=== PATIENT | female | born 1945 | race African-American/Black ===

== ENCOUNTER 2016-11-25 20:08 | Emergency (ER) | payer MEDICARE, OTHER ==
[~2016-11-25] VITALS: Ht 180.3 cm; Wt 72.6 kg
[2016-11-25] MEDS ORDERED: LEVOTHYROXINE125 MCG ORAL (20:31)
[2016-11-25] MEDS ORDERED: VITAMIN D1000 UNI1 ORAL (20:31)
[2016-11-25] MEDS ORDERED: ASPIR 8181 MG ORAL (20:31)
[2016-11-25] MEDS ORDERED: AMLODIPINE BESYL5 MG ORAL (20:31)
[2016-11-25] MEDS ORDERED: POTASSIUM CHLOR8 ME2 PO (20:31)
[2016-11-25 21:44] VITALS: BP 138/57
[2016-11-25 21:49] LABS: BASOPHILS % (AUTO) 1.7 % (0.0-2.0); EOSINOPHILS % (AUTO) 1.3 % (0.0-3.0); LYMPHOCYTES % (AUTO) 26.7 % (20.0-45.0); MEAN CORPUSCULAR HEMOGLOBIN 28.4 PG (27.0-31.0); MEAN CORPUSCULAR HGB CONC 31.5 G/DL (32.0-36.0); MEAN CORPUSCULAR VOLUME 90 FL (80-99); MEAN PLATELET VOLUME 5.6 FL (6.5-10.1); MONOCYTES % (AUTO) 7.5 % (1.0-10.0); NEUTROPHILS % (AUTO) 62.8 % (45.0-75.0); PLATELET COUNT 235 K/UL (150-450); RED BLOOD COUNT 3.57 M/UL (4.20-5.40); WHITE BLOOD COUNT 8.8 K/UL (4.8-10.8)
[2016-11-25 22:05] LABS: TROPONIN I < 0.30 ng/mL (<=0.30)
[2016-11-25 22:18] LABS: ALANINE AMINOTRANSFERASE 9 U/L (3-33); ALBUMIN/GLOBULIN RATIO 1.3 (1.0-2.7); ANION GAP 20 (5-15); ASPARTATE AMINO TRANSFERASE 19 U/L (5-40); CALCIUM 9.4 mg/dL (8.6-10.2); CARBON DIOXIDE 25 mEQ/L (20-30); CHLORIDE 100 mEQ/L (98-107); CREATININE 0.8 mg/dL (0.5-0.9); HEMOLYSIS 39; POTASSIUM 3.8 mEQ/L (3.4-4.9); SODIUM 145 mEQ/L (135-145); TOTAL PROTEIN 7.2 g/dL (6.6-8.7)
[2016-11-25 22:28] LABS: CKMB 1.6 ng/mL (< 3.8)
[2016-11-25] MEDS ORDERED: HYDROCHLOROTHIA25 MG ORAL (22:49)
[2016-11-25 23:30] VITALS: BP_SYST 134; BP_SYST 138; BP_DIAS 57; BP_DIAS 61
--- NOTE | 2016-11-26 10:16 | Diagnostic Imaging Report ---
Clinical Indication: Abdominal pain Technique: No oral contrast utilized, per emergency room physician request IV administration nonionic contrast. Venous phase spiral acquisition obtained through the abdomen and pelvis. Multiplanar reconstructions were generated. Total dose length product 731 mGycm. CTDIvol(s) 15 mGy Comparison: None Findings: The appendix is normal. There is colonic diverticulosis. No evidence of diverticulitis. No small bowel distention. No free or loculated intraperitoneal air or fluid is evident. The liver, gallbladder, bile ducts, pancreas, spleen, adrenals, are unremarkable. Nonobstructing calculi are seen in the upper pole left kidney and questionably in the lower pole of the right kidney, measuring up to 3 mm diameter No retroperitoneal or mesenteric mass or adenopathy. No pelvic mass or adenopathy. Some calcifications are seen within the uterine myometrium. There are degenerative changes of the lumbosacral spine and of the pelvis. The included lung bases demonstrate some atelectasis on the left. The heart is enlarged Impression: No acute process Nonobstructive left upper pole intrarenal calyceal calculi. Equivocal tiny calculus in the lower pole the right kidney Diverticulosis. No evidence of diverticulitis Cardiomegaly Incidental findings of left basilar pulmonary atelectasis, degenerative dialysis, uterine myometrial calcifications This agrees with the preliminary interpretation provided overnight by [facility]. The CT scanner at [facility] is accredited by the [employer] and the scans are performed using protocols designed to limit radiation exposure to as low as reasonably achievable to attain images of sufficient resolution adequate for diagnostic evaluation.
--- NOTE | 2016-11-26 13:06 | Diagnostic Imaging Report ---
Indication: SOB Technique: One view of the chest Comparison: none Findings: The heart is mildly enlarged. Lungs and pleural space are clear. The aorta is calcified Impression: No acute process
--- NOTE | 2016-11-26 23:59 | Cardiology Report ---
APPROVED REPORT EKG Measurement Heart [id number] Sinus rhythm with premature atrial complexes Otherwise normal ECG
--- NOTE | 2016-11-27 20:44 | Emergency Room Report ---
History of Present Illness General Chief Complaint: Edema Source: Patient Present Illness HPI Patient is a 71-year-old female presented after increased lower extremity edema. Patient had recent increase in swelling to both legs. She denied any chest pain or shortness of breath. The patient had the noticed initial swelling to her right lower extremity. Her left lower extremity subsequently began swelling as well. She had no recent fever. She denied any change in her diet. She reported urinating normally. Patient had been taking diuretics. Allergies: Coded Allergies: No Known Allergies (Unverified , 11/25/16) Patient History Past Medical History: see triage record Now: No Reviewed Nursing Documentation: PMH: Agreed, PSxH: Agreed Nursing Documentation-PMH Past Medical History: No History, Except For Hx Hypertension: Yes Review of Systems All Other Systems: negative except mentioned in HPI Physical Exam Vital Signs Date Time Temp Pulse Resp B/P Pulse Ox O2 Delivery O2 Flow Rate FiO2 11/25/16 20:24 97.9 120 16 140/64 95 Room Air Sp02 EP Interpretation: reviewed, normal General Appearance: normal inspection, well appearing, no apparent distress, alert, GCS 15 Head: atraumatic ENT: normal ENT inspection, hearing grossly normal, normal voice Neck: normal inspection, full range of motion, supple, no bony tend Respiratory: normal inspection, lungs clear, normal breath sounds, no respiratory distress, no retraction, no wheezing Cardiovascular #1: regular rate, rhythm, edema Gastrointestinal: normal inspection, normal bowel sounds, non tender, soft, no guarding, no hernia Genitourinary: no CVA tenderness Musculoskeletal: normal inspection, back normal, normal range of motion Neurologic: normal inspection, alert, oriented x3, responsive, 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 Differential diagnosis included but was not limited to fracture, DVT, contusion, renal stone, vascular insufficiency, aortic aneurysm, cellulitis.Because of complexity of patient's case laboratory testing and imaging studies were ordered. Patient was noted to have evidence of pedal edema. This appears to not be cellulitic in nature. The patient was noted to have no prior history of cardiac disease or liver disease. Laboratory testing was ordered due to patient 's condition. BNP was unremarkable. CT of the abdomen pelvis was ordered to rule out mass. Patient was noted to have uterine fibroids. These do not appear decompressing her IVC. The patient is advised to follow up with primary care doctor in 1-2 days. Patient is advised to return if any worsening condition or if any changes in status that are concerning. Labs Test 11/25/16 21:00 11/25/16 21:25 Sodium Level 145 mEQ/L (135-145) Potassium Level 3.8 mEQ/L (3.4-4.9) Chloride Level 100 mEQ/L (98-107) Carbon Dioxide Level 25 mEQ/L (20-30) Anion Gap 20 (5-15) Blood Urea Nitrogen 14 mg/dL (7-23) Creatinine 0.8 mg/dL (0.5-0.9) Estimat Glomerular Filtration Rate mL/min (>60) Glucose Level 122 mg/dL (74-106) Calcium Level 9.4 mg/dL (8.6-10.2) Total Bilirubin 0.3 mg/dL (0.0-1.2) Aspartate Amino Transf (AST/SGOT) 19 U/L (5-40) Alanine Aminotransferase (ALT/SGPT) 9 U/L (3-33) Alkaline Phosphatase 118 U/L (35-104) Total Creatine Kinase 86 U/L (26-140) Creatine Kinase MB 1.6 ng/mL (< 3.8) Creatine Kinase MB Relative Index 1.8 Troponin I < 0.30 ng/mL (<=0.30) Total Protein 7.2 g/dL (6.6-8.7) Albumin 4.1 g/dL (3.5-5.2) Globulin 3.1 g/dL Albumin/Globulin Ratio 1.3 (1.0-2.7) Thyroid Stimulating Hormone (TSH) 1.570 uIU/mL (0.300-4.500) White Blood Count 8.8 K/UL (4.8-10.8) Red Blood Count 3.57 M/UL (4.20-5.40) Hemoglobin 10.1 G/DL (12.0-16.0) Hematocrit 32.1 % (37.0-47.0) Mean Corpuscular Volume 90 FL (80-99) Mean Corpuscular Hemoglobin 28.4 PG (27.0-31.0) Mean Corpuscular Hemoglobin Concent 31.5 G/DL (32.0-36.0) Red Cell Distribution Width 14.0 % (11.6-14.8) Platelet Count 235 K/UL (150-450) Mean Platelet Volume 5.6 FL (6.5-10.1) Neutrophils (%) (Auto) 62.8 % (45.0-75.0) Lymphocytes (%) (Auto) 26.7 % (20.0-45.0) Monocytes (%) (Auto) 7.5 % (1.0-10.0) Eosinophils (%) (Auto) 1.3 % (0.0-3.0) Basophils (%) (Auto) 1.7 % (0.0-2.0) Last Vital Signs Date Time Temp Pulse Resp B/P Pulse Ox O2 Delivery O2 Flow Rate FiO2 11/25/16 23:30 97.7 16 138/57 97 Room Air 11/25/16 23:30 84 Status: improved Disposition: HOME, SELF-CARE Condition: Stable Scripts Hydrochlorothiazide* (HYDROCHLOROTHIAZIDE*) 25 Mg Tablet 25 MG ORAL DAILY, #30 TAB Prov: Darron Beltre 11/25/16 Patient Instructions: Edema, [id number] Darron Beltre Nov 27, 2016 20:44
--- NOTE | 2016-11-28 10:26 | Diagnostic Imaging Report ---
APPROVED REPORT CPT Code: 77816 Present Symptoms Lower Extremity Pain: Bilateral BILATERAL: Imaging reveals a patent deep venous system bilaterally. There is no evidence of thrombus within the femoral, popliteal or tibial segments. The greater saphenous veins are also within normal limits. Doppler indicates normal spontaneous flow within these segments.
== END 2016-11-25 23:42 | disposition home or self-care (01) ==
LOC: EMR 20:46
DX: R60.0 Localized edema (principal); I10 Essential (primary) hypertension
CPT/HCPCS: 36415; 71010; 74177; 80053; 82550; 82553; 84443; 84484; 85025; 93005; 93970; 96374; 99284; J1940; Q9967

== ENCOUNTER 2017-02-01 12:43 | Emergency (ER) | payer MEDICARE ==
[~2017-02-01] VITALS: Ht 182.9 cm; Wt 76.2 kg
[~2017-02-01 12:43] MED LIST: AMLODIPINE BESYL5 MG ORAL; ASPIR 8181 MG ORAL; HYDROCHLOROTHIA25 MG ORAL; LEVOTHYROXINE125 MCG ORAL; POTASSIUM CHLOR8 ME2 PO; VITAMIN D1000 UNI1 ORAL
[2017-02-01 13:30] VITALS: BP 139/68
[2017-02-01] MEDS ORDERED: GABAPENTIN300 MG ORAL (13:59)
[2017-02-01 14:00] VITALS: BP 139/68
--- NOTE | 2017-02-03 11:40 | Emergency Room Report ---
History of Present Illness General Chief Complaint: General Complaint Source: Patient Present Illness [facility] The patient is a 71 yo F who has a Hx of HTN presenting for "weird feeling" in both legs for the past 2 months. She is unable to describe the sensation and denies pain, numbness, tingling, burning, cold, or heaviness. She denies any swelling to the legs or feet. She denies any injury. She has also noticed an increase of size to her abdomen and wants to make sure it is fat tissue. She admits to eating more sweets and walking less recently. She denies any other symptoms including N, V, F, chills, CP, SOB, rash, MARIE, dizziness, blurred vision, abd pain, diarrhea, constipation Allergies: Coded Allergies: No Known Allergies (Unverified , 11/25/16) Patient History Past Medical History: see triage record Pertinent Family History: none Reviewed Nursing Documentation: PMH: Agreed, PSxH: Agreed Nursing Documentation-PMH Past Medical History: No History, Except For Hx Hypertension: Yes Review of Systems All Other Systems: negative except mentioned in HPI Physical Exam Vital Signs Date Time Temp Pulse Resp B/P Pulse Ox O2 Delivery O2 Flow Rate FiO2 02/01/17 12:53 79 18 141/63 98 Room Air Sp02 EP Interpretation: reviewed, normal General Appearance: no apparent distress, alert, GCS 15, non-toxic Head: normocephalic, atraumatic Eyes: bilateral eye PERRL, bilateral eye normal inspection ENT: hearing grossly normal, normal pharynx, no angioedema, normal voice Neck: full range of motion, supple/symm/no masses Respiratory: normal inspection, chest non-tender, lungs clear, normal breath sounds, no accessory muscle use, speaking full sentences Cardiovascular #1: regular rate, rhythm, no edema Gastrointestinal: normal bowel sounds, non tender, soft, no mass, non-distended , no guarding, no rebound Genitourinary: normal inspection, no CVA tenderness Neurologic: alert, oriented x3, responsive, motor strength/tone normal, sensory intact, normal gait, speech normal Psychiatric: judgement/insight normal, memory normal, mood/affect normal, no suicidal/homicidal ideation Skin: normal color, no rash, warm/dry, well hydrated Lymphatic: no adenopathy Medical Decision Making PA Attestation Dr. Almeida is my supervising physician. Patient management was discussed with my supervising physician Diagnostic Impression: Primary Impression: Neuropathy ER Course The pt is a 71 yo F presenting for "weird feeling" of both legs and concern for abdominal enlargement DDx considered but not limited to: diabetes, neuropathy, strain, DVT, venous insufficiency, constipation, obesity, among others PE: vitals WNL. NAD Lungs CTA bilat. No MRG Abd is soft and non tender. There is adipose tissue where the patient is concerned for enlargement. No hernia. Normal BS. No discoloration Legs and feet: no edema. SILT. Non tender. Normal gait. no varicosity. Accucheck is 88. The pt will be FL'ed home and needs to FU with PMD. Prescription for gabapentin given. ER precautions given Chest X-Ray Diagnostic Results Chest X-Ray Ordered: No Last Vital Signs Date Time Temp Pulse Resp B/P Pulse Ox O2 Delivery O2 Flow Rate FiO2 02/01/17 14:00 87 17 139/68 99 Room Air Status: improved Disposition: HOME, SELF-CARE Condition: Improved Scripts Gabapentin* (GABAPENTIN*) 300 Mg Capsule 300 MG ORAL BID, #30 CAP 0 Refills Prov: ONEIDA BORJA 02/01/17 Referrals: NON PHYSICIAN (PCP) Patient Instructions: Peripheral Neuropathy Additional Instructions: I discussed my findings with the patient. All questions and concerns have been answered. Treatment and medication compliance have been addressed. I advised the patient that they need to follow up with PMD in 3-5 days. Return to ED if symptoms worsen, new symptoms arise, or if needed for any reason. Patient verbalized understanding of discharge instructions. ONEIDA BORJA Feb 03, 2017 11:40
== END 2017-02-01 14:00 | disposition home or self-care (01) ==
LOC: EMR 13:52
DX: G62.9 Polyneuropathy, unspecified (principal); I10 Essential (primary) hypertension
CPT/HCPCS: 82962; 99283

== ENCOUNTER 2017-03-04 07:52 | Emergency (ER) | payer MEDICAID, MEDICARE ==
[~2017-03-04] VITALS: Ht 182.9 cm; Wt 73.9 kg
[~2017-03-04 07:52] MED LIST changes: +GABAPENTIN300 MG ORAL
--- NOTE | 2017-03-04 08:05 | Emergency Room Report ---
History of Present Illness General Chief Complaint: To Be Triaged Source: Patient Present Illness HPI Patient presents with left shoulder pain. She states tingling on since [place] Day. Denies any trauma. Pain is in her shoulder and she's occasionally felt some swelling in her ring finger. She denies any numbness. Recently she was given a water pill because of retention of fluids with hypertension. The edema has improved in her legs. She also has some pain in her right elbow which is less than her left shoulder. She denies any chest pain , shortness of breath, fevers, chills, nausea, vomiting, diarrhea, dysuria. She denies taking any pain medication. Allergies: Coded Allergies: No Known Allergies (Unverified , 11/25/16) Patient History Past Medical History: see triage record Social History Narrative at home Reviewed Nursing Documentation: PMH: Agreed, PSxH: Agreed Nursing Documentation-PMH Hx Hypertension: Yes Review of Systems All Other Systems: negative except mentioned in HPI Physical Exam Vital Signs Date Time Temp Pulse Resp B/P Pulse Ox O2 Delivery O2 Flow Rate FiO2 03/04/17 08:02 98.2 106 14 125/57 96 Room Air Sp02 EP Interpretation: reviewed, normal General Appearance: well appearing, no apparent distress Head: normocephalic, atraumatic Eyes: bilateral eye PERRL, bilateral eye other - arcus ENT: hearing grossly normal, normal voice Neck: full range of motion, supple Respiratory: chest non-tender, lungs clear, no respiratory distress, speaking full sentences Cardiovascular #1: regular rate, rhythm Cardiovascular #2: 2+ radial (L) Musculoskeletal: no calf tenderness Neurologic: alert, normal gait Psychiatric: mood/affect normal Skin: no rash Medical Decision Making Diagnostic Impression: Primary Impression: Left shoulder pain Qualified Codes: M25.512 - Pain in left shoulder Additional Impression: Calcific bursitis of shoulder ER Course Patient with L shoulder pain with recent diuretics. DDx: bursitis, tendonitis, gout, cardiac cause amongst others. Evaluation with labs, EKG and xrays. Treatment with tylenol. Xrays with calcific bursitis and tendonitis. Labs exclude gout. EKG as below. Improved with treatment. Sling applied by tech. Position excellent and neurovasc normal as checked by me. Patient stable for outpatient observation and treatment. Laboratory Tests Test 03/04/17 08:20 White Blood Count 11.5 K/UL (4.8-10.8) H Red Blood Count 4.46 M/UL (4.20-5.40) Hemoglobin 12.8 G/DL (12.0-16.0) Hematocrit 40.4 % (37.0-47.0) Mean Corpuscular Volume 91 FL (80-99) Mean Corpuscular Hemoglobin 28.7 PG (27.0-31.0) Mean Corpuscular Hemoglobin Concent 31.6 G/DL (32.0-36.0) L Red Cell Distribution Width 12.4 % (11.6-14.8) Platelet Count 271 K/UL (150-450) Mean Platelet Volume 7.4 FL (6.5-10.1) Neutrophils (%) (Auto) 78.6 % (45.0-75.0) H Lymphocytes (%) (Auto) 12.7 % (20.0-45.0) L Monocytes (%) (Auto) 7.9 % (1.0-10.0) Eosinophils (%) (Auto) 0.1 % (0.0-3.0) Basophils (%) (Auto) 0.7 % (0.0-2.0) Prothrombin Time 9.4 SEC (9.30-11.50) Prothrombin Time INR 0.9 (0.9-1.1) PTT 30 SEC (23-33) Sodium Level 138 mEQ/L (135-145) Potassium Level 3.8 mEQ/L (3.4-4.9) Chloride Level 102 mEQ/L (98-107) Carbon Dioxide Level 23 mEQ/L (20-30) Anion Gap 13 (5-15) Blood Urea Nitrogen 10 mg/dL (7-23) Creatinine 0.8 mg/dL (0.5-0.9) Estimate Glomerular Filtration Rate mL/min (>60) Glucose Level 181 mg/dL (74-106) H Uric Acid 2.9 mg/dL (3.0-7.5) L Calcium Level 9.0 mg/dL (8.6-10.2) Total Bilirubin 0.5 mg/dL (0.0-1.2) Aspartate Amino Transferase (AST) 16 U/L (5-40) Alanine Aminotransferase (ALT) 11 U/L (3-33) Alkaline Phosphatase 90 U/L (35-104) Total Creatine Kinase 45 U/L (26-140) Troponin I < 0.30 ng/mL (<=0.30) Total Protein 7.7 g/dL (6.6-8.7) Albumin 3.6 g/dL (3.5-5.2) Globulin 4.1 g/dL Albumin/Globulin Ratio 0.8 (1.0-2.7) L EKG Diagnostic Results Rate: normal Rhythm: NSR ST Segments: no acute changes - LAE Rhythm Strip Diag. Results EP Interpretation: yes Rhythm: NSR, no PVC's, no ectopy Chest X-Ray Diagnostic Results Chest X-Ray Diagnostic Results : Chest X-Ray Ordered: Yes # of Views/Limited/Complete: 1 View Indication: Other EP Interpretation: Yes Interpretation: no consolidation, no effusion, no pneumothorax, no acute cardiopulmonary disease Impression: No acute disease Interpreting ER Provider: Electronically signed by Gonzalo Mendoza MD Other X-Ray Diagnostic Results Other X-Ray Diagnostic Results : X-Ray ordered: L shoulder # of Views/Limited Vs Complete: 3 View Indication: Pain EP Interpretation: Yes Interpretation: no dislocation, no soft tissue swelling, no fractures, other - calcific bursitis and tendon Impression: Other Interpreting ER Provider: Electronically signed by Gonzalo Mendoza MD Last Vital Signs Date Time Temp Pulse Resp B/P Pulse Ox O2 Delivery O2 Flow Rate FiO2 03/04/17 10:00 98.1 102 15 122/63 97 Room Air Status: improved Disposition: HOME, SELF-CARE Condition: Improved Scripts Acetaminophen (Tylenol) 325 Mg Tablet 650 MG ORAL Q6H Y for Prn Pain/Headache/Temp > 101, #20 TAB 0 Refills Prov: Gonzalo Mendoza M.D. 03/04/17 Tramadol Hcl* (ULTRAM*) 50 Mg Tablet 50 MG ORAL Q6H Y for For Pain, #10 TAB 0 Refills Prov: Gonzalo Mendoza M.D. 03/04/17 Gonzalo Mendoza M.D. Mar 04, 2017 08:05
[2017-03-04 08:27] VITALS: BP 122/63
[2017-03-04 08:38] LABS: BASOPHILS % (AUTO) 0.7 % (0.0-2.0); EOSINOPHILS % (AUTO) 0.1 % (0.0-3.0); LYMPHOCYTES % (AUTO) 12.7 % (20.0-45.0); MEAN CORPUSCULAR HEMOGLOBIN 28.7 PG (27.0-31.0); MEAN CORPUSCULAR HGB CONC 31.6 G/DL (32.0-36.0); MEAN CORPUSCULAR VOLUME 91 FL (80-99); MEAN PLATELET VOLUME 7.4 FL (6.5-10.1); MONOCYTES % (AUTO) 7.9 % (1.0-10.0); NEUTROPHILS % (AUTO) 78.6 % (45.0-75.0); PLATELET COUNT 271 K/UL (150-450); RED BLOOD COUNT 4.46 M/UL (4.20-5.40); RED CELL DISTRIBUTION WIDTH 12.4 % (11.6-14.8); WHITE BLOOD COUNT 11.5 K/UL (4.8-10.8)
[2017-03-04 08:57] LABS: INR 0.9 (0.9-1.1); PROTHROMBIN TIME 9.4 SEC (9.30-11.50)
[2017-03-04 08:58] LABS: ALANINE AMINOTRANSFERASE 11 U/L (3-33); ALBUMIN/GLOBULIN RATIO 0.8 (1.0-2.7); ANION GAP 13 (5-15); ASPARTATE AMINO TRANSFERASE 16 U/L (5-40); CARBON DIOXIDE 23 mEQ/L (20-30); CHLORIDE 102 mEQ/L (98-107); CREATININE 0.8 mg/dL (0.5-0.9); HEMOLYSIS 1; POTASSIUM 3.8 mEQ/L (3.4-4.9); SODIUM 138 mEQ/L (135-145); TOTAL PROTEIN 7.7 g/dL (6.6-8.7); URIC ACID 2.9 mg/dL (3.0-7.5)
[2017-03-04 08:59] LABS: TROPONIN I < 0.30 ng/mL (<=0.30)
[2017-03-04] MEDS ORDERED: TYLENOL325 MG ORAL (09:48)
[2017-03-04] MEDS ORDERED: TRAMADOL HCL50 MG ORAL (09:48)
[2017-03-04 10:00] VITALS: BP 122/63
--- NOTE | 2017-03-04 12:29 | Diagnostic Imaging Report ---
Indication: Left shoulder pain Technique: 3 views of the left shoulder Comparison: none Findings: There is chondrocalcinosis of the humeral head articular cartilage. No acute fractures. No dislocations. Joint spaces are preserved. Impression:No acute process This agrees with the preliminary interpretation provided by the emergency room physician
--- NOTE | 2017-03-04 13:08 | Diagnostic Imaging Report ---
Indication: PAIN Technique: One view of the chest Comparison: 11/25/2016 Findings: Lungs and pleural spaces are clear. The heart is borderline enlarged. Aorta is tortuous and ectatic. Impression: Borderline cardiomegaly. No acute process This agrees with the preliminary interpretation provided by the emergency room physician
--- NOTE | 2017-03-04 13:30 | Cardiology Report ---
APPROVED REPORT EKG Measurement Heart [id number] Normal sinus rhythm Possible Left atrial enlargement Borderline ECG
== END 2017-03-04 10:04 | disposition home or self-care (01) ==
LOC: EMR 08:32
DX: M75.52 Bursitis of left shoulder (principal); I10 Essential (primary) hypertension
CPT/HCPCS: 29240; 36415; 71010; 80053; 82550; 84484; 84550; 85025; 85610; 85730; 93005; 99284

== ENCOUNTER 2017-06-12 12:01 | Emergency (ER) | payer MEDICARE, MEDICAID ==
[~2017-06-12] VITALS: Ht 182.9 cm; Wt 77.1 kg
[~2017-06-12 12:01] MED LIST changes: +TRAMADOL HCL50 MG ORAL; +TYLENOL325 MG ORAL
[2017-06-12 12:39] VITALS: BP 145/81
--- NOTE | 2017-06-12 13:18 | Emergency Room Report ---
History of Present Illness General Chief Complaint: Pain Present Illness HPI 71-year-old female presents to the emergency department complaining of 10 out of 10 in severity pain that is localized with erythema, swelling and increased temperature palpation of the right hand x3 days. Patient reports she has several itchy insect bites. Patient denies history of immunocompromise. Denies lesions/rashes elsewhere on the body. Denies new medications or body washes or creams. Denies swelling of the lips, tongue , throat or airway. Denies wheezing, or shortness of breath. Denies recent travel, recent illness or ill contacts. denies blisters, oral lesions, or sloughing of the skin. She states she is up-to-date with vaccinations. Denies CP, Palpitations, LOC, AMS, dizziness, Changes in Vision, Sensation, paresthesias, or a sudden severe headache. Allergies: Coded Allergies: No Known Allergies (Unverified , 11/25/16) Patient History Past Medical History: see triage record Past Surgical History: none Nursing Documentation-PM Hx Hypertension: Yes Review of Systems All Other Systems: negative except mentioned in HPI Physical Exam Vital Signs Date Time Temp Pulse Resp B/P (MAP) Pulse Ox O2 Delivery O2 Flow Rate FiO2 06/12/17 12:29 98.4 93 20 177/79 96 Room Air Sp02 EP Interpretation: reviewed, normal General Appearance: no apparent distress, alert, GCS 15, non-toxic Head: normocephalic, atraumatic Eyes: bilateral eye normal inspection, bilateral eye PERRL ENT: hearing grossly normal, normal pharynx, no angioedema, normal voice Neck: full range of motion, supple/symm/no masses Respiratory: lungs clear, normal breath sounds, speaking full sentences Cardiovascular #1: regular rate, rhythm, normal capillary refill Musculoskeletal: back normal, gait/station normal, normal range of motion, non- tender Neurologic: alert, oriented x3, responsive, motor strength/tone normal, sensory intact, speech normal Psychiatric: judgement/insight normal, memory normal, mood/affect normal Skin: no rash, warm/dry, well hydrated, other - erythema, increased temperature to palpation, small abrasion noted with clear crusting. no fluctuance palpated, no vesicles, no blisters. Lymphatic: no adenopathy Medical Decision Making PA Attestation Dr. Almeida is my supervising Physician whom patient management has been discussed with. Diagnostic Impression: Primary Impression: Cellulitis Qualified Codes: L03.113 - Cellulitis of right upper limb ER Course 71-year-old female presents to the emergency department complaining of 10 out of 10 in severity pain that is localized with erythema, swelling and increased temperature palpation of the right hand x3 days. Patient reports she has several itchy insect bites. Patient denies history of immunocompromise. Denies lesions/rashes elsewhere on the body. Denies new medications or body washes or creams. Denies swelling of the lips, tongue , throat or airway. Denies wheezing, or shortness of breath. Denies recent travel, recent illness or ill contacts. denies blisters, oral lesions, or sloughing of the skin. She states she is up-to-date with vaccinations. Denies CP, Palpitations, LOC, AMS, dizziness, Changes in Vision, Sensation, paresthesias, or a sudden severe headache. Ddx considered but are not limited to cellulitis, fracture/dislocation, septic joint, gout just to name a few. Vital signs: are WNL, pt. is afebrile H&PE are most consistent with cellulitis of the right forearm/lateral wrist non- circumferential. ORDERS: none required at this time, the diagnosis is clinical ED INTERVENTIONS: -IBU PO -Clindamycin PO -- Right arm Sling applied by certified surgical technician. Pt. remains neurovascularly intact. -- area of erythema is marked using skin pen. This patient was given strict return precautions to the emergency department promptly with any worsening or new symptoms. She is instructed to keep a close eye on her hand and monitor for progression of erythema to indicate progression of the infection. Discussed with patient she should followup with her primary care doctor within 48 hours. DISCHARGE: At this time pt. is stable for d/c to home. Will provide printed patient care instructions, and any necessary prescriptions. Care plan and follow up instructions have been discussed with the patient prior to discharge. Last Vital Signs Date Time Temp Pulse Resp B/P (MAP) Pulse Ox O2 Delivery O2 Flow Rate FiO2 06/12/17 12:29 98.4 93 20 177/79 96 Room Air Disposition: HOME, SELF-CARE Condition: Stable Scripts Acetaminophen* (TYLENOL EXTRA STRENGTH*) 500 Mg Tablet 500 MG ORAL Q6H, #20 TAB 0 Refills Prov: Roma Barakat 06/12/17 Clindamycin Hcl (CLINDAMYCIN HCL) 300 Mg Capsule 300 MG ORAL FOUR TIMES A DAY for 7 Days, #28 CAP Prov: Roma Barakat 06/12/17 Patient Instructions: Cellulitis, [id number] Additional Instructions: Take medications as directed. Follow up with a Primary Care Provider within 2 days, even if your symptoms have resolved. --Please review list of primary care clinics, if you do not already have a primary care provider Return sooner to ED if new symptoms occur, or current symptoms become worse. - Please note that this Emergency Department Report was dictated using [employer]edi programmer technology software, occasionally this can lead to erroneous entry secondary to interpretation by the dictation equipment. Roma Barakat Jun 12, 2017 13:17
[2017-06-12] MEDS ORDERED: Clindamycin 150mg cap ORAL SCH (13:30)
[2017-06-12] MEDS ORDERED: CLINDAMYCIN HC300 MG ORAL (13:32)
[2017-06-12] MEDS ORDERED: TYLENOL EXTRA500 MG ORAL (13:32)
[2017-06-12 13:40] VITALS: BP 145/81
== END 2017-06-12 13:40 | disposition home or self-care (01) ==
LOC: EMR 13:26
DX: L03.113 Cellulitis of right upper limb (principal); I10 Essential (primary) hypertension
CPT/HCPCS: 99284

== ENCOUNTER 2018-05-06 19:44 | Emergency (ER) | payer MEDICARE, MEDICAID ==
[~2018-05-06] VITALS: Ht 182.9 cm; Wt 77.1 kg
[~2018-05-06 19:44] MED LIST changes: +CLINDAMYCIN HC300 MG ORAL; +TYLENOL EXTRA500 MG ORAL
[2018-05-06] MEDS ORDERED: Isovue-300 100ml vial INJ PRN (20:15)
[2018-05-06 20:20] VITALS: BP 162/63
[2018-05-06 20:34] LABS: APPEARANCE,URINE CLEAR; BILIRUBIN, URINE NEGATIVE (NEGATIVE); COLOR,URINE PALE YELLOW; GLUCOSE, URINE (UA) 1+ (NEGATIVE); KETONES,URINE 2+ (NEGATIVE); LEUKOCYTE ESTERASE ,URINE NEGATIVE (NEGATIVE); NITRITE,URINE NEGATIVE (NEGATIVE); PH,URINE 8 (4.5-8.0); PROTEIN,URINE 3+ (NEGATIVE); UROBILINOGEN,URINE NORMAL MG/DL (0.0-1.0)
[2018-05-06 20:34] LABS: HEMOGLOBIN 12.7 G/DL (12.0-16.0); MEAN CORPUSCULAR VOLUME 87 FL (80-99); PLATELET COUNT 242 K/UL (150-450); RED BLOOD COUNT 4.35 M/UL (4.20-5.40); RED CELL DISTRIBUTION WIDTH 12.1 % (11.6-14.8)
[2018-05-06 20:42] LABS: BASOPHILS % (AUTO) 0.7 % (0.0-2.0); LYMPHOCYTES % (AUTO) 8.7 % (20.0-45.0); MONOCYTES % (AUTO) 2.1 % (1.0-10.0); NEUTROPHILS % (AUTO) 88.4 % (45.0-75.0)
[2018-05-06 20:50] LABS: ANION GAP 10 mmol/L (5-15); BLOOD UREA NITROGEN 11 mg/dL (7-18); CALCIUM 9.4 MG/DL (8.5-10.1); CARBON DIOXIDE 25 MMOL/L (21-32); CHLORIDE 103 MMOL/L (98-107); CREATININE 0.7 MG/DL (0.55-1.30); POTASSIUM 3.4 MMOL/L (3.5-5.1); SODIUM 138 MMOL/L (136-145)
[2018-05-06 20:56] LABS: ALANINE AMINOTRANSFERASE 18 U/L (12-78); ALBUMIN 3.7 G/DL (3.4-5.0); ALBUMIN/GLOBULIN RATIO 0.8 (1.0-2.7); ALKALINE PHOSPHATASE 92 U/L (46-116); ASPARTATE AMINO TRANSFERASE 15 U/L (15-37); BILIRUBIN,TOTAL 0.4 MG/DL (0.2-1.0)
[2018-05-06 22:19] VITALS: BP 166/68
--- NOTE | 2018-05-06 22:44 | Emergency Room Report ---
History of Present Illness General Chief Complaint: Abdominal Pain Source: Patient Present Illness [facility] This patient has a couple complaints. She states that she has had upper abdominal pain for the past day. She states she's also had a headache today. She describes the headache as left frontal. She denies vision changes. She denies fever or chills. She did have an episode of vomiting. She denies dysuria or hematuria. She has no other complaints. Allergies: Coded Allergies: No Known Allergies (Unverified , 11/25/16) Patient History Past Medical History: HTN Social History: Denies: smoking, alcohol use, drug use Now: No Reviewed Nursing Documentation: PMH: Agreed; PSxH: Agreed Nursing Documentation-PMH Hx Hypertension: Yes Review of Systems All Other Systems: negative except mentioned in HPI Physical Exam Vital Signs Date Time Temp Pulse Resp B/P (MAP) Pulse Ox O2 Delivery O2 Flow Rate FiO2 05/06/18 19:54 98.4 98 20 162/63 96 Room Air 98.4 Sp02 EP Interpretation: reviewed, normal General Appearance: no apparent distress, alert, GCS 15, non-toxic Head: normocephalic, atraumatic Eyes: bilateral eye normal inspection, bilateral eye PERRL ENT: hearing grossly normal, normal pharynx, no angioedema, normal voice Neck: full range of motion, supple/symm/no masses Respiratory: chest non-tender, lungs clear, normal breath sounds, no respiratory distress, no retraction, no accessory muscle use, speaking full sentences Cardiovascular #1: regular rate, rhythm, no edema Gastrointestinal: normal bowel sounds, soft, non-distended, no guarding, no rebound, tenderness - TTP in the epigastrium Rectal: deferred Musculoskeletal: back normal, gait/station normal, normal range of motion, non- tender Neurologic: alert, oriented x3, responsive, motor strength/tone normal, sensory intact, speech normal Psychiatric: judgement/insight normal, memory normal, mood/affect normal, no suicidal/homicidal ideation Skin: normal color, no rash, warm/dry, well hydrated Medical Decision Making Diagnostic Impression: Primary Impression: Abdominal pain Additional Impression: Headache ER Course Likely this patient has a gastritis/gastroenteritis. However, given the patient 's age, I did obtain a CT of the abdomen and pelvis. It did show distended gallbladder so I did order a right upper quadrant ultrasound that is pending at the time of this dictation. Please see Dr. Beltre as addendum. Overall, the patient's evaluation is benign. I anticipate that if the patient's ultrasound is negative this patient can go home with gastritis treatment. Laboratory Tests Test 05/06/18 20:16 05/06/18 20:20 Urine Color Pale yellow Urine Appearance Clear Urine pH 8 (4.5-8.0) Urine Specific [place] 1.015 (1.005-1.035) Urine Protein 3+ (NEGATIVE) H Urine Glucose (UA) 1+ (NEGATIVE) H Urine Ketones 2+ (NEGATIVE) H Urine Blood 3+ (NEGATIVE) H Urine Nitrite Negative (NEGATIVE) Urine Bilirubin Negative (NEGATIVE) Urine Urobilinogen Normal MG/DL (0.0-1.0) Urine Leukocyte Esterase Negative (NEGATIVE) Urine RBC 2-4 /HPF (0 - 2) H Urine WBC 0-2 /HPF (0 - 2) Urine Squamous Epithelial Cells Occasional /LPF Urine Bacteria None /HPF (NONE) White Blood Count 10.0 K/UL (4.8-10.8) Red Blood Count 4.35 M/UL (4.20-5.40) Hemoglobin 12.7 G/DL (12.0-16.0) Hematocrit 38.0 % (37.0-47.0) Mean Corpuscular Volume 87 FL (80-99) Mean Corpuscular Hemoglobin 29.2 PG (27.0-31.0) Mean Corpuscular Hemoglobin Concent 33.4 G/DL (32.0-36.0) Red Cell Distribution Width 12.1 % (11.6-14.8) Platelet Count 242 K/UL (150-450) Mean Platelet Volume 6.5 FL (6.5-10.1) Neutrophils (%) (Auto) 88.4 % (45.0-75.0) H Lymphocytes (%) (Auto) 8.7 % (20.0-45.0) L Monocytes (%) (Auto) 2.1 % (1.0-10.0) Eosinophils (%) (Auto) 0.0 % (0.0-3.0) Basophils (%) (Auto) 0.7 % (0.0-2.0) Sodium Level 138 MMOL/L (136-145) Potassium Level 3.4 MMOL/L (3.5-5.1) L Chloride Level 103 MMOL/L (98-107) Carbon Dioxide Level 25 MMOL/L (21-32) Anion Gap 10 mmol/L (5-15) Blood Urea Nitrogen 11 mg/dL (7-18) Creatinine 0.7 MG/DL (0.55-1.30) Estimate Glomerular Filtration Rate mL/min (>60) Glucose Level 165 MG/DL (74-106) H Calcium Level 9.4 MG/DL (8.5-10.1) Total Bilirubin 0.4 MG/DL (0.2-1.0) Aspartate Amino Transferase (AST) 15 U/L (15-37) Alanine Aminotransferase (ALT) 18 U/L (12-78) Alkaline Phosphatase 92 U/L (46-116) Total Protein 8.3 G/DL (6.4-8.2) H Albumin 3.7 G/DL (3.4-5.0) Globulin 4.6 g/dL Albumin/Globulin Ratio 0.8 (1.0-2.7) L Lipase 77 U/L (73-393) CT/MRI/US Diagnostic Results CT/MRI/US Diagnostic Results : Imaging Test Ordered: CT head Impression CT Head: No acute findings. Specifically no intracranial bleed, mass effect or edema. See official report. CT abd/pelvis:Impression: No acute abnormality Mild renal collecting system fullness, without evident obstructing lesion. Significance/etiology uncertain. Previously demonstrated renal calculi are no longer evident Equivocal trace free pelvic fluid, of uncertain etiology but cannot be considered physiologic in a postmenopausal female Colonic diverticulosis. No evidence of diverticulitis Borderline cardiomegaly Mild hepatic venous distention, could indicate mild central venous hypertension Other findings as noted, including degenerative spondylosis, uterine calcifications, retroaortic left renal vein, possible gastric diverticulum, small hiatal hernia Subcentimeter low-attenuation right lobe liver lesions and bilateral renal lesions, too small to characterize, most likely benign simple cysts. No additional imaging or follow-up is recommended A 3 cm benign-appearing, cystic lesion is seen in the left adnexa, in retrospect evident previously and probably unchanged. No additional imaging or follow-up is recommended. US abd: No acute findings. See official report. Last Vital Signs Date Time Temp Pulse Resp B/P (MAP) Pulse Ox O2 Delivery O2 Flow Rate FiO2 05/06/18 22:19 98.4 98 18 166/68 99 Room Air 98.4 Disposition: HOME, SELF-CARE Condition: Improved Scripts Dicyclomine Hcl* (DICYCLOMINE HCL*) 10 Mg Capsule 10 MG PO QID, #20 CAP Prov: Darron Beltre MD 05/06/18 Referrals: [facility],REFERRING (PCP) Areli Almeida DO May 06, 2018 22:44
[2018-05-06] MEDS ORDERED: DICYCLOMINE HCL10 MG PO (23:57)
[2018-05-07 00:10] VITALS: BP 153/59
--- NOTE | 2018-05-07 09:17 | Diagnostic Imaging Report ---
Clinical Indication: Abdominal pain, nausea, vomiting Technique: No oral contrast utilized, per emergency room physician request IV administration nonionic contrast. Venous phase spiral acquisition obtained through the abdomen and pelvis. Multiplanar reconstructions were generated. Total dose length product 743 mGycm. CTDIvol(s) 14 mGy. Dose reduction achieved using automated exposure control Comparison: 11/25/2016 Findings: There is a small sliding-type hiatal hernia. There is questionably a posterior gastric diverticulum. The duodenum is unremarkable. Normal appendix. There is colonic diverticulosis. No evidence of diverticulitis. No small bowel distention. No free or loculated intraperitoneal gas is evident. There is equivocally trace free pelvic fluid. The liver demonstrates scattered subcentimeter low-attenuation lesions in the right lobe. The gallbladder, bile ducts, pancreas, spleen, adrenals are unremarkable. Left kidney demonstrates an interpolar region cyst. Both kidneys demonstrate subcentimeter low-attenuation lesions which are too small to characterize, most likely benign simple cortical cysts. No renal or ureteral calculi, hydronephrosis, or hydroureter. Previously demonstrated left upper pole intrarenal calculus is no longer evident. There is a retroaortic left renal vein incidentally noted The uterus demonstrates some calcifications. There is a 3 cm left ovarian cyst which is also evident previously in retrospect. No retroperitoneal or mesenteric mass or adenopathy. The included lung bases demonstrate posterior dependent atelectatic changes. The heart is borderline enlarged. There is mild distention of the hepatic veins which is somewhat more striking than on the previous study. The bones demonstrate mild degenerative spondylosis changes. Impression: No acute abnormality Mild renal collecting system fullness, without evident obstructing lesion. Significance/etiology uncertain. Previously demonstrated renal calculi are no longer evident Equivocal trace free pelvic fluid, of uncertain etiology but cannot be considered physiologic in a postmenopausal female Colonic diverticulosis. No evidence of diverticulitis Borderline cardiomegaly Mild hepatic venous distention, could indicate mild central venous hypertension Other findings as noted, including degenerative spondylosis, uterine calcifications, retroaortic left renal vein, possible gastric diverticulum, small hiatal hernia Subcentimeter low-attenuation right lobe liver lesions and bilateral renal lesions, too small to characterize, most likely benign simple cysts. No additional imaging or follow-up is recommended A 3 cm benign-appearing, cystic lesion is seen in the left adnexa, in retrospect evident previously and probably unchanged. No additional imaging or follow-up is recommended. Recommendations for adnexal lesion management based on Bruno, et al., J Am Janae Radiol 10:675-81 (2013). This agrees with the preliminary interpretation provided overnight by [facility] teleradiology service. The CT scanner at [facility] is accredited by the [employer] and the scans are performed using protocols designed to limit radiation exposure to as low as reasonably achievable to attain images of sufficient resolution adequate for diagnostic evaluation.
--- NOTE | 2018-05-07 09:46 | Diagnostic Imaging Report ---
Indication: Right upper quadrant pain Technique: Tellez-scale and duplex images of the upper abdomen were obtained Comparison: Reference made to 05/06/[address] Findings: Gallbladder is unremarkable, without stones, wall thickening, nor pericholecystic fluid. Sonographic Costa's sign is negative. Common bile duct measures to mm in diameter. No intrahepatic biliary ductal dilatation. Liver demonstrates normal echogenicity, no focal abnormality. Portal vein and hepatic veins are patent. Pancreas is unremarkable. Spleen is unremarkable. Left kidney measures 10.3 cm in length. Right kidney measures 11 cm length. Both kidneys demonstrate normal echogenicity. There is no hydronephrosis. Left kidney demonstrates an interpolar region cyst . Non-aneurysmal abdominal aorta . Impression: Essentially unremarkable exam. Negative for gallstones, dilated ducts, or other significant abnormality Incidental finding small left renal cyst
--- NOTE | 2018-05-07 09:52 | Diagnostic Imaging Report ---
Indications: Headache Technique: Spiral acquisitions obtained through the brain. Angled axial and coronal 5 x 5 mm slices were reconstructed. Total dose length product 1383 mGycm. CTDI vol(s) 70 mGy. Dose reduction achieved using automated exposure control Comparison: None. Findings: Exam is somewhat limited; presence of intravascular contrast from recent abdomen pelvis CT scan limit sensitivity for acute bleed. No gross acute intracranial hemorrhage or edema. No mass effect nor midline shift. Normal for age ventricles and extra axial CSF spaces. There is some periventricular deep white matter low-attenuation consistent with chronic ischemic change. Intact calvarium. Lies orbits and sinuses are unremarkable. Impression: Mild chronic deep white matter ischemic changes. Negative for acute intracranial bleed or mass effect This agrees with the preliminary interpretation provided overnight by [facility]. The CT scanner at [facility] is accredited by the [employer] and the scans are performed using protocols designed to limit radiation exposure to as low as reasonably achievable to attain images of sufficient resolution adequate for diagnostic evaluation.
== END 2018-05-07 00:10 | disposition home or self-care (01) ==
LOC: EMR 20:37
DX: R10.10 Upper abdominal pain, unspecified (principal); R51 Headache; I10 Essential (primary) hypertension; K82.8 Other specified diseases of gallbladder; K57.30 Diverticulosis of large intestine without perforation or abscess without bleeding; N28.1 Cyst of kidney, acquired; K76.9 Liver disease, unspecified
CPT/HCPCS: 36415; 70450; 74177; 76700; 80053; 81003; 83690; 85025; 96360; 99284; Q9967